=== PATIENT | female | born 1960 | race Caucasian/White ===

== ENCOUNTER 2018-09-21 15:43 | Emergency (ER) | payer SELFPAY ==
[~2018-09-21] VITALS: Ht 157.5 cm; Wt 104.8 kg
[2018-09-21 16:44] VITALS: BP 157/99
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
--- NOTE | 2018-09-21 16:52 | NUR ---
DOMINGO JACKSON AT BEDSIDE FOR EVAL.
--- NOTE | 2018-09-21 17:17 | NUR ---
Patient discharged to home in stable condition. Written and verbal after care instructions given. Patient verbalizes understanding of instruction.
== END 2018-09-21 17:19 | disposition home or self-care (01) ==
LOC: ER 15:49
DX: S16.1XXA Strain of muscle, fascia and tendon at neck level, initial encounter (principal); I10 Essential (primary) hypertension; V49.59XA Passenger injured in collision with other motor vehicles in traffic accident, initial encounter; Y93.89 Activity, other specified; Y92.411 Interstate highway as the place of occurrence of the external cause; Y99.8 Other external cause status